=== PATIENT | female | born 1980 | race Caucasian/White ===

== ENCOUNTER 2017-12-30 11:11 | Inpatient (IN) | payer OTHER ==
[~2017-12-30] VITALS: Ht 170.2 cm; Wt 81.6 kg
[2018-02-18] MEDS ORDERED: VALTREX1000 MG PO (02:51)
[2018-02-18] MEDS ORDERED: PRENATAL TABLE1 EAC1 PO (02:51)
== END 2018-02-20 13:15 | disposition home or self-care (01) | DRG 774 ==
LOC: LDR 02-08 11:06 → SURG-SUITE 02-18 16:03
PROC: 10E0XZZ Delivery of Products of Conception, External Approach (ICD-10-PCS; principal; 2018-02-18)
PROC: 0W8NXZZ Division of Female Perineum, External Approach (ICD-10-PCS; 2018-02-18)
PROC: 10907ZC Drainage of Amniotic Fluid, Therapeutic from Products of Conception, Via Natural or Artificial Opening (ICD-10-PCS; 2018-02-18)
PROC: 3E033VJ Introduction of Other Hormone into Peripheral Vein, Percutaneous Approach (ICD-10-PCS; 2018-02-18)
PROC: 4A033R1 Measurement of Arterial Saturation, Peripheral, Percutaneous Approach (ICD-10-PCS; 2018-02-18)
PROC: 4A1HXCZ Monitoring of Products of Conception, Cardiac Rate, External Approach (ICD-10-PCS; 2018-02-18)
DX: O48.0 Post-term pregnancy (principal); O98.42 Viral hepatitis complicating childbirth; B16.9 Acute hepatitis B without delta-agent and without hepatic coma; Z3A.40 40 weeks gestation of pregnancy; Z37.0 Single live birth

== ENCOUNTER 2018-02-13 10:04 | Outpatient (CLI) | payer OTHER | END 2018-02-13 11:02 | disposition home or self-care (01) | LOC: NST 10:04 | DX: Z34.83 Encounter for supervision of other normal pregnancy, third trimester (principal) ==

== ENCOUNTER 2018-02-16 10:41 | Outpatient (CLI) | payer OTHER | END 2018-02-16 11:35 | disposition home or self-care (01) | LOC: NST 10:41 | DX: Z34.83 Encounter for supervision of other normal pregnancy, third trimester (principal) ==

== ENCOUNTER 2021-03-05 13:00 | Inpatient (IN) | payer OTHER ==
[~2021-03-05] VITALS: Ht 170.2 cm; Wt 77.1 kg
[~2021-03-05 13:00] MED LIST: PRENATAL TABLE1 EAC1 PO; VALTREX1000 MG PO
== END 2021-03-30 11:03 | disposition home or self-care (01) | DRG 807 ==
LOC: SURH 03-14 13:15 → LDR 03-28 06:09 → OB/GYN 03-28 16:06
PROVIDERS: ADMIT Obstetrics & Gynecology; ATTEND Obstetrics & Gynecology
PROC: 10E0XZZ Delivery of Products of Conception, External Approach (ICD-10-PCS; principal; 2021-03-28)
PROC: 0W8NXZZ Division of Female Perineum, External Approach (ICD-10-PCS; 2021-03-28)
PROC: 4A1HXFZ Monitoring of Products of Conception, Cardiac Rhythm, External Approach (ICD-10-PCS; 2021-03-28)
PROC: 3E033VJ Introduction of Other Hormone into Peripheral Vein, Percutaneous Approach (ICD-10-PCS; 2021-03-28)
DX: O80 Encounter for full-term uncomplicated delivery (principal); Z37.0 Single live birth; Z3A.40 40 weeks gestation of pregnancy; Z20.822 Contact with and (suspected) exposure to COVID-19

== ENCOUNTER 2021-03-23 10:47 | Outpatient (CLI) | payer OTHER | END 2021-03-23 11:48 | disposition home or self-care (01) | LOC: NST 10:47 | PROVIDERS: ATTEND Obstetrics & Gynecology | DX: Z34.83 Encounter for supervision of other normal pregnancy, third trimester (principal) ==

== ENCOUNTER → 2021-03-25 | Outpatient (CLI) | payer OTHER | END | disposition home or self-care (01) | LOC: NST 17:52 | PROVIDERS: ATTEND Obstetrics & Gynecology | DX: Z34.83 Encounter for supervision of other normal pregnancy, third trimester (principal) ==

== ENCOUNTER 2024-06-21 17:21 | Emergency (ER) | payer OTHER ==
[~2024-06-21] VITALS: Ht 167.6 cm; Wt 65.8 kg
[2024-06-21] MEDS ORDERED: ANALPRAM HC 2.530 GM RECTAL (17:43)
[2024-06-21] MEDS ORDERED: METHYLPREDNISOLONE SOD SUCC 125 MG VIAL IM ONE (17:45)
== END 2024-06-21 18:38 | disposition home or self-care (01) ==
LOC: ER 17:23
DX: K64.8 Other hemorrhoids (principal)